=== PATIENT | male | born 1950 | race Native Hawaiian/Other Pacific Islander ===

== ENCOUNTER 2021-02-05 15:42 | Outpatient (CLI) | payer OTHER ==
[2021-02-05 15:55] LABS: PLATELET COUNT 208 K/uL (142-355)
[2021-02-05 16:13] LABS: POTASSIUM 5.1 mmol/L (3.6-5.2)
== END 2021-02-05 19:57 | disposition home or self-care (01) ==
LOC: LAB 15:42
PROVIDERS: ATTEND Nurse Practitioner Family
DX: Z00.00 Encounter for general adult medical examination without abnormal findings (principal); Z79.899 Other long term (current) drug therapy; R53.83 Other fatigue; R53.81 Other malaise; E53.8 Deficiency of other specified B group vitamins; E55.9 Vitamin D deficiency, unspecified
CPT/HCPCS: 80053; 80061; 82306; 83036; 84439; 84443; 85027